=== PATIENT | female | born 1945 | race Caucasian/White ===

== ENCOUNTER 2022-09-14 16:13 | Observation (INO) ==
[2022-09-14 17:02] LABS: Basophils # (auto) 0.09 K/uL (0-0.2); Eosinophils # (auto) 0.13 K/uL (0-0.50); Eosinophils % (auto) 1.4 %; Hematocrit (blood only) 39.5 % (37.0-47.0); Hemoglobin 13.3 g/dl (12.0-16.0); Immature Granulocytes # (auto) 0.03 K/uL (0.01-0.20); Immature Granulocytes % (auto) 0.3 %; Lymphocytes # (auto) 2.98 K/uL (1.2-3.4); Lymphocytes % (auto) 32.3 %; Mean Corpuscular Hemoglobin 31.5 pg (25.0-34.0); Mean Corpuscular Hgb Conc 33.7 g/dL (32.0-36.0); Mean Corpuscular Volume 93.6 fL (80.0-100.0); Mean Platelet Volume 10.1 fL (9.4-12.4); Monocytes # (auto) 0.63 K/uL (0.11-0.59); Monocytes % (auto) 6.8 %; Neutrophils # (auto) 5.38 K/uL (1.40-6.50); Neutrophils % (auto) 58.2 %; Platelet Count 350 K/uL (130-400); RDW Coefficient of Variation 12.9 % (11.5-14.5); RDW Standard Deviation 43.9 fL (36.4-46.3); Red Blood Count 4.22 M/uL (4.20-5.40); White Blood Count 9.24 K/ul (4.8-10.8)
[2022-09-14 17:20] LABS: Albumin Globulin Ratio 1.6 (0.9-2); Albumin Level 4.6 gm/dl (3.4-5.0); BUN Creatinine Ratio 19.2 (10-20); Bilirubin,Total 0.8 mg/dl (0.2-1.0); Calcium 9.6 mg/dl (8.5-10.1); Creatinine Clr Calc Pharmacy 65.6 ml/min; Est GFR (African American) 91.4 ml/min; Est GFR (Non-African American) 78.9 ml/min; Globulin 2.9 gm/dl (2.5-4.0); Potassium 4.1 mmol/L (3.5-5.1); Total Protein 7.5 gm/dl (6.0-8.3)
[2022-09-14 17:25] LABS: Troponin I High Sensitivity 4.4 pg/ml (0-14)
[2022-09-14 17:33] LABS: Partial Thromboplastin Time 26.6 Seconds (21.0-31.0); Prothrombin Time 10.6 Seconds (9.0-12.0)
--- NOTE | 2022-09-14 17:49 | XRay Report ---
SINGLE VIEW CHEST CLINICAL HISTORY: Atypical chest pain FINDINGS: An AP, portable, upright chest radiograph is obtained. No prior studies are available for c omparison at the time of dictation. The heart is enlarged noting atherosclerotic calcification of the thoracic aorta. The pulmonary vasculature is noncongested. Nonspecific interstitial thickening is li mari chronic. There is bibasilar scarring/atelectasis. The lungs and pleural spaces are otherwise sujey ar. No pneumothorax is seen. The skeletal structures are osteopenic. The bony thorax is grossly intac t. IMPRESSION: Cardiomegaly with no acute cardiopulmonary abnormality. ACT 112: Negative or not required by law. Electronically signed by: Juan Luis Arnett M.D. 09/14/2022 5:48 PM
[2022-09-14] MEDS ORDERED: NITROGLYCERIN SL 0.4 MG/TAB TAB SL STA (18:08)
[2022-09-14] MEDS ORDERED: ASPIRIN CHEW 324 MG PO STA (18:08)
--- NOTE | 2022-09-14 18:59 | History & Physical Report ---
Date of Service September 14, 2022 Assessment & Plan (1) Chest pain: Plan: New symptom of chest pain over the last week described above, improved wtih nitroglycerin, which also improved her blood pressure. Uncontrolled new onset HTN may be a contributing factor. 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 HS trop is negative x 2. EKG with LBBB. No active chest pain after nitroglycerin. Possible unstable angina. Former but not active smoker and will obtain lipid panel fasting. Will start low dose losartan, obtain echo in am and consult cardiology. Cont to monitor on telemetry overnight. Nitro PRN pain. (2) HTN (hypertension): Plan: New onset. Patient with multiple BP readings from home in the Stage II HTN range. Losartan as above. Low salt diet. (3) New onset left bundle branch block (LBBB): Plan: Repeat EKG in am. Echo, cardiology consultation. (4) S/P radiation therapy: Plan: for breast cancer treatment in 2014 (5) Post-surgical hypothyroidism: Plan: chronic, stable. cont Synthroid per home regimen. DVT proph-Lovenox Full Code Dispo- to home in 1-2 days. Tosha Clark DO [facility] Hospitalist History of Present Illness Chief Complaint: chest pain, HTN Primary Care Provider: Mariana Craven DO 77 yo F with no know history of CAD, s/p XRT therapy to her chest for treatment of breast cancer in 2014 presents with elevated blood pressure and chest pain. Chest pain was reported a few days ago, also. She reports having BP checked in a dental visit one week ago and it was 180 systolic. She went home and bought a BP cuff and took several readings. Historically she has had normal BP but in the last week she has noted a trend of 150-180 systolic consistently. During this time she reports intermittent chest discomfort which feels like a vice sound designer/someone holding and squeezing her heart, mostly underneath her left breath. She was burping to feel relief. Reports pain is better with lying flat, possibly worse with sitting up. She has feel increased malaise, generally. She reports "my breathing is not as good as it used to be." Gained 20 pounds over the last few years. Allergies Allergy/AdvReac Type Severity Reaction Status Date / Time No Known Allergies Allergy NONE Verified 09/14/22 18:54 Home Medications Medication Instructions Recorded Confirmed Type Lactobacillus acidophilus 10 10 cell PO DAILY 09/14/22 09/14/22 History billion cell capsule (Probiotic) acetylcysteine 600 mg capsule (NAC) 600 mg PO DAILY 09/14/22 09/14/22 History ascorbic acid (vitamin C) 1,000 mg 1,000 mg PO DAILY 09/14/22 09/14/22 History tablet (Vitamin C) cholecalciferol (vitamin D3) 25 25 mcg PO DAILY 09/14/22 09/14/22 History mcg (1,000 unit) capsule (Vitamin D3) elderberry fruit 200 mg capsule 200 mg PO DAILY 09/14/22 09/14/22 History levothyroxine 88 mcg tablet 88 mcg PO QAM 09/14/22 09/14/22 History (Synthroid) magnesium oxide 400 mg PO DAILY 09/14/22 09/14/22 History vitamin B complex 1 cap PO DAILY 09/14/22 09/14/22 History Past Med/Surg History Medical History (Updated 09/14/22 @ 20:43 by Tosha Clark, DO) Benign neoplasm of colon Jun 2012-hyperplastic polyp 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) "Abnormal left breast mammogram Status post core biopsy 10/03/2014 Status post vacuum-assisted stereotactic biopsy 10/22/2014 revealing lobular hyperplasia Status post left partial mastectomy and sentinel lymph node biopsy 11/01/2014 Revealing invasive lobular carcinoma Estrogen receptor was positive, progesterone receptor was negative, HER-2/jc negative Stage pT2 a pN0 M0 G1 Status post completion of radiation therapy utilizing hypo-fractionation completed 01/09/2015 received 5000 cGy" On 01/24/15 08:56 Michelle Bautista wrote "Abnormal left breast mammogram Status post vacuum-assisted stereotactic biopsy 10/22/2014 revealing lobular hyperplasia Status post left partial mastectomy and sentinel lymph node biopsy 11/01/2014 Revealing invasive lobular carcinoma Estrogen receptor was positive, progesterone receptor was negative, HER-2/jc negative Stage pT2 a pN0 M0 G1 Status post completion of radiation therapy utilizing hypo-fractionation completed 01/09/2015 received 5000 cGy" On 01/24/15 08:56 Michelle Bautista wrote "Abnormal left breast mammogram Status post vacuum-assisted stereotactic biopsy 10/22/2014 revealing lobular hyperplasia Status post left partial mastectomy and sentinel lymph node biopsy 11/01/2014 Revealing invasive lobular carcinoma Estrogen receptor was positive, progesterone receptor was negative, HER-2/jc negative Stage pT2 a pN0 M0 G1 Status post completion of radiation therapy utilizing hypo-fractionation completed 01/09/2015 received 5000 cGy" On 11/28/14 10:56 Michelle Bautista wrote "Abnormal left breast mammogram Status post vacuum-assisted stereotactic biopsy 10/22/2014 revealing lobular hyperplasia Status post left partial mastectomy and sentinel lymph node biopsy 11/01/2014 Revealing invasive lobular carcinoma Estrogen receptor was positive, progesterone receptor was negative, HER-2/jc negative Stage pT2 a pN0 M0 G1" On 11/28/14 10:50 Michelle Bautista wrote "Abnormal left breast mammogram Status post vacuum-assisted stereotactic biopsy 10/22/2014 revealing lobular hyperplasia Status post left partial mastectomy and sentinel lymph node biopsy 11/01/2014 revealing invasive lobular carcinoma, estrogen receptor was positive, progesterone receptor was negative, HER-2/jc negative Stage pT2 a pN0 M0 G1" Cervical dysplasia Malignant neoplasm of thyroid gland Osteoporosis Post-surgical hypothyroidism Surgical History (Updated 09/14/22 @ 18:58 by Tosha Clark DO) S/P left breast biopsy S/P lumpectomy, left breast S/P radiation therapy S/P right breast biopsy S/P [place] (total abdominal hysterectomy) S/P thyroid surgery Family History (Updated 09/14/22 @ 18:55 by Tosha Clark DO) Other Breast cancer Social History (Updated 09/14/22 @ 18:57 by Tosha Clark DO) Smoking Status: Former smoker Smoking End Date: 06/27/2005-30 pack year history; Hx Alcohol Use: Yes Feels Safe at Home: Yes Review of Systems Review of Systems: All systems were reviewed and negative except as indicated on HPI above. Physical Exam Physical Exam: CONSTITUTIONAL: WNWD, vitals as above, generally well-appearing,NAD, appears younger than stated age. EYES: normal conjunctivae, no scleral icterus ENT: external ear and nose normal, MMM NECK: trachea midline RESPIRATORY: clear to auscultation bilaterally, no crackles, rales or wheezes, normal respiratory effort CARDIOVASCULAR: regular rate and rhythm, S1 and 2 heard without murmurs, gallops or rubs, no JVD, no peripheral edema CHEST: inspection of chest was normal GASTROINTESTINAL: soft, nontender, ND, no guarding MUSCULOSKELETAL: strength 5/5 throughout, head is normocephalic and atraumatic SKIN: warm and dry NEUROLOGIC: CN 2-12 grossly intact, no sensory deficit, normal cognition, normal speech, no tremor PSYCHIATRIC: alert cooperative and oriented to person, place and time. Eut hymic mood, makes good eye contact, language grossly intact, recent and remote memory grossly intact. Results & Data Results & Data Vital Signs (Past 12 Hours) Vital Signs Temp Pulse Pulse Resp BP BP Pulse Ox 09/14/22 18:41 85 16 133/85 92 09/14/22 18:20 82 16 165/64 H 94 09/14/22 17:51 85 09/14/22 17:37 92 09/14/22 17:37 95 H 16 184/103 H 09/14/22 16:17 36.8 C 97 H 18 190/91 H 92 O2 Del Method 09/14/22 18:41 Room Air 09/14/22 18:20 Room Air 09/14/22 17:51 09/14/22 17:37 Room Air 09/14/22 17:37 Room Air 09/14/22 16:17 Room Air Laboratory Results Short CBC 09/14/22 Range/Units 16:29 WBC 9.24 (4.8-10.8) K/ul Hgb 13.3 (12.0-16.0) g/dl Hct 39.5 (37.0-47.0) % Plt Count 350 (130-400) K/uL BMP 09/14/22 16:29 Sodium 140 Potassium 4.1 Chloride 105 Carbon Dioxide 28 BUN 14 Creatinine 0.73 Glucose 93 Calcium 9.6 Liver Function 09/14/22 Range/Units 16:29 Total Bilirubin 0.8 (0.2-1.0) mg/dl AST 17 (13-39) U/L ALT 17 (7-52) U/L Alkaline Phosphatase 103 (34-104) U/L Albumin 4.6 (3.4-5.0) gm/dl Diagnostic Findings Chest X-Ray 09/14/22 16:21 SINGLE VIEW CHEST CLINICAL HISTORY: Atypical chest pain FINDINGS: An AP, portable, upright chest radiograph is obtained. No prior studies are available for comparison at the time of dictation. The heart is enlarged noting atherosclerotic calcification of the thoracic aorta. The pulmonary vasculature is noncongested. Nonspecific interstitial thickening is likely chronic. There is bibasilar scarring/atelectasis. The lungs and pleural spaces are otherwise clear. No pneumothorax is seen. The skeletal structures are osteopenic. The bony thorax is grossly intact. IMPRESSION: Cardiomegaly with no acute cardiopulmonary abnormality. ACT 112: Negative or not required by law. Electronically signed by: Juan Luis Arnett M.D. 09/14/2022 5:48 PM Code Status & VTE Plan VTE Prophylaxis Plan VTE Prophylaxis will be ordered: Yes
[2022-09-14 20:09] LABS: Troponin I High Sensitivity 3.9 pg/ml (0-14)
--- NOTE | 2022-09-14 21:01 | Emergency Department Note ---
History of Present Illness General Chief complaint: Hypertension Stated complaint: HBP, CHEST PAIN, HEADACHE, Time Seen by Provider: 09/14/22 17:30 History of Present Illness Provider complaint: Hypertension headache 69-year-old female presents emergency department for hypertension and headache. Patient reports she was at a dental appointment approximately 1 week ago and incidentally found to have high blood pressure. Patient states she has been recording her blood pressures over the last week and has been elevated. Patient reports she started having chest pain over the last 2 days. She reports no difficulty breathing chest pain is located substernal area. No radiation of the pain. She feels the pain feels like a pressure. No cough no fever no hemoptysis no nausea vomiting diarrhea or hematuria. Home Medications Medication Instructions Recorded Confirmed Type Lactobacillus acidophilus 10 10 cell PO DAILY 09/14/22 09/14/22 History billion cell capsule (Probiotic) acetylcysteine 600 mg capsule (NAC) 600 mg PO DAILY 09/14/22 09/14/22 History ascorbic acid (vitamin C) 1,000 mg 1,000 mg PO DAILY 09/14/22 09/14/22 History tablet (Vitamin C) cholecalciferol (vitamin D3) 25 25 mcg PO DAILY 09/14/22 09/14/22 History mcg (1,000 unit) capsule (Vitamin D3) elderberry fruit 200 mg capsule 200 mg PO DAILY 09/14/22 09/14/22 History levothyroxine 88 mcg tablet 88 mcg PO QAM 09/14/22 09/14/22 History (Synthroid) magnesium oxide 400 mg PO DAILY 09/14/22 09/14/22 History vitamin B complex 1 cap PO DAILY 09/14/22 09/14/22 History Allergies Allergy/AdvReac Type Severity Reaction Status Date / Time No Known Allergies Allergy NONE Verified 09/14/22 18:54 Past Med/Surg History Medical History Benign neoplasm of colon Jun 2012-hyperplastic polyp 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) "Abnormal left breast mammogram Status post core biopsy 10/03/2014 Status post vacuum-assisted stereotactic biopsy 10/22/2014 revealing lobular hyperplasia Status post left partial mastectomy and sentinel lymph node biopsy 11/01/2014 Revealing invasive lobular carcinoma Estrogen receptor was positive, progesterone receptor was negative, HER-2/jc negative Stage pT2 a pN0 M0 G1 Status post completion of radiation therapy utilizing hypo-fractionation completed 01/09/2015 received 5000 cGy" On 01/24/15 08:56 Michelle Bautista wrote "Abnormal left breast mammogram Status post vacuum-assisted stereotactic biopsy 10/22/2014 revealing lobular hyperplasia Status post left partial mastectomy and sentinel lymph node biopsy 11/01/2014 Revealing invasive lobular carcinoma Estrogen receptor was positive, progesterone receptor was negative, HER-2/jc negative Stage pT2 a pN0 M0 G1 Status post completion of radiation therapy utilizing hypo-fractionation completed 01/09/2015 received 5000 cGy" On 01/24/15 08:56 Michelle Bautista wrote "Abnormal left breast mammogram Status post vacuum-assisted stereotactic biopsy 10/22/2014 revealing lobular hyperplasia Status post left partial mastectomy and sentinel lymph node biopsy 11/01/2014 Revealing invasive lobular carcinoma Estrogen receptor was positive, progesterone receptor was negative, HER-2/jc negative Stage pT2 a pN0 M0 G1 Status post completion of radiation therapy utilizing hypo-fractionation completed 01/09/2015 received 5000 cGy" On 11/28/14 10:56 Michelle Bautista wrote "Abnormal left breast mammogram Status post vacuum-assisted stereotactic biopsy 10/22/2014 revealing lobular hyperplasia Status post left partial mastectomy and sentinel lymph node biopsy 11/01/2014 Revealing invasive lobular carcinoma Estrogen receptor was positive, progesterone receptor was negative, HER-2/jc negative Stage pT2 a pN0 M0 G1" On 11/28/14 10:50 Michelle Bautista wrote "Abnormal left breast mammogram Status post vacuum-assisted stereotactic biopsy 10/22/2014 revealing lobular hyperplasia Status post left partial mastectomy and sentinel lymph node biopsy 11/01/2014 revealing invasive lobular carcinoma, estrogen receptor was positive, progesterone receptor was negative, HER-2/jc negative Stage pT2 a pN0 M0 G1" Cervical dysplasia Malignant neoplasm of thyroid gland Osteoporosis Post-surgical hypothyroidism Surgical History S/P left breast biopsy S/P lumpectomy, left breast S/P radiation therapy S/P right breast biopsy S/P [place] (total abdominal hysterectomy) S/P thyroid surgery Family History Other Breast cancer Social History Smoking Status: Former smoker Smoking End Date: 06/27/2005-30 pack year history; Hx Alcohol Use: Yes Feels Safe at Home: Yes Physical Exam Vital Signs Vital Signs - 24 hr 09/14/22 16:17 09/14/22 17:37 09/14/22 17:37 Temperature 36.8 C Temperature Source Temporal Artery Scan Pulse Rate 97 H Pulse Rate [Apical] 95 H Respiratory Rate 18 16 Respiratory Effort / Characteristics Non-Labored Non-Labored Respiratory Depth Normal Normal Respiratory Pattern Regular Blood Pressure 190/91 H Blood Pressure [Right Arm] 184/103 H Blood Pressure Mean 124 Blood Pressure Mean [Right Arm] 130 Blood Pressure Position Sitting Pulse Oximetry 92 92 Oxygen Delivery Method Room Air Room Air Room Air Sepsis Recent Fever Within 48 Hours No Sepsis New/Unexplained Change in Mental Status No Sepsis Action Taken by Nursing No Action Required 09/14/22 17:51 09/14/22 18:20 09/14/22 18:41 Temperature Temperature Source Pulse Rate 85 Pulse Rate [Apical] 82 85 Respiratory Rate 16 16 Respiratory Effort / Characteristics Non-Labored Respiratory Depth Normal Respiratory Pattern Blood Pressure Blood Pressure [Right Arm] 165/64 H 133/85 Blood Pressure Mean Blood Pressure Mean [Right Arm] 97 101 Blood Pressure Position Pulse Oximetry 94 92 Oxygen Delivery Method Room Air Room Air Sepsis Recent Fever Within 48 Hours Sepsis New/Unexplained Change in Mental Status Sepsis Action Taken by Nursing 09/14/22 19:03 09/14/22 19:30 09/14/22 20:00 Temperature Temperature Source Pulse Rate Pulse Rate [Apical] 79 78 78 Respiratory Rate 16 18 18 Respiratory Effort / Characteristics Non-Labored Non-Labored Non-Labored Respiratory Depth Normal Normal Normal Respiratory Pattern Blood Pressure Blood Pressure [Right Arm] 119/80 152/85 H 158/79 H Blood Pressure Mean Blood Pressure Mean [Right Arm] 93 107 105 Blood Pressure Position Pulse Oximetry 92 95 94 Oxygen Delivery Method Room Air Room Air Room Air Sepsis Recent Fever Within 48 Hours Sepsis New/Unexplained Change in Mental Status Sepsis Action Taken by Nursing 09/14/22 20:44 Temperature Temperature Source Pulse Rate Pulse Rate [Apical] 73 Respiratory Rate 18 Respiratory Effort / Characteristics Non-Labored Respiratory Depth Normal Respiratory Pattern Blood Pressure Blood Pressure [Right Arm] 160/87 H Blood Pressure Mean Blood Pressure Mean [Right Arm] 111 Blood Pressure Position Pulse Oximetry 95 Oxygen Delivery Method Room Air Sepsis Recent Fever Within 48 Hours Sepsis New/Unexplained Change in Mental Status Sepsis Action Taken by Nursing Physical Exam GENERAL: oriented to person, place, and time. appears well-developed and well- nourished. Patient sitting in bed comfortably reading a book. HENT: Exam performed. - Head: Normocephalic and atraumatic. EYES: Conjunctivae and EOM are normal. Right eye exhibits no discharge. Left eye exhibits no discharge. No scleral icterus. NECK: Normal range of motion. Neck supple. No JVD present. CV: Normal rate, regular rhythm, normal heart sounds and intact distal pulses. There is no peripheral edema. Palpable radial pulses bue. PULM/CHEST: Effort normal and breath sounds normal. No respiratory distress. No stridor. no wheezes. no rales. ABD: The abdomen is soft. There is no tenderness. NEURO: Motor and sensation grossly intact. SKIN: Skin is warm and dry. He is not diaphoretic. PSYCH: normal mood and affect. Behavior is normal. Judgment and thought content normal. Course Course 1729: The patient was evaluated in room C8. A complete history and physical exam was performed Administered Medications Discontinued Medications Aspirin (Aspirin Chew 324 Mg) 324 mg PO NOW STA Stop: 09/14/22 18:09 Last Admin: 09/14/22 18:21 Dose: 324 mg Documented By: FERNANDO Nitroglycerin (Nitroglycerin Sl 0.4 Mg/Tab Tab) 0.4 mg SL NOW STA Stop: 09/14/22 18:09 Last Admin: 09/14/22 18:21 Dose: 0.4 mg Documented By: FERNANDO Medical Decision Making Medical Records Attestation: I reviewed the patient's medical records. External medical records reviewed in the [facility] as well as in the [employer] EMR system via the renal case manager Jeannette and there are no previous EKGs Laboratory Data Attestation: I reviewed the patient's lab results. 09/14/22 16:29 09/14/22 16:29 Lab Results 09/14/22 09/14/22 09/14/22 Range/Units 16:29 16:29 16:29 WBC 9.24 (4.8-10.8) K/ul RBC 4.22 (4.20-5.40) M/uL Hgb 13.3 (12.0-16.0) g/dl Hct 39.5 (37.0-47.0) % MCV 93.6 (80.0-100.0) fL MCH 31.5 (25.0-34.0) pg MCHC 33.7 (32.0-36.0) g/dL RDW Std Deviation 43.9 (36.4-46.3) fL RDW Coeff of Lola 12.9 (11.5-14.5) % Plt Count 350 (130-400) K/uL MPV 10.1 (9.4-12.4) fL Immature Gran % (Auto) 0.3 % Neut % (Auto) 58.2 % Lymph % (Auto) 32.3 % [place] % (Auto) 6.8 % Eos % (Auto) 1.4 % Baso % (Auto) 1.0 % Neut # (Auto) 5.38 (1.40-6.50) K/uL Lymph # (Auto) 2.98 (1.2-3.4) K/uL [place] # (Auto) 0.63 H (0.11-0.59) K/uL Eos # (Auto) 0.13 (0-0.50) K/uL Baso # (Auto) 0.09 (0-0.2) K/uL Immature Gran # (Auto) 0.03 (0.01-0.20) K/uL PT 10.6 (9.0-12.0) Seconds INR 1.0 (0.9-1.1) APTT 26.6 (21.0-31.0) Seconds PTT Ratio 1.0 Sodium 140 (136-145) mmol/L Potassium 4.1 (3.5-5.1) mmol/L Chloride 105 (98-107) mmol/L Carbon Dioxide 28 (21-32) mmol/L Anion Gap 7 (3-11) BUN 14 (6-23) mg/dl Creatinine 0.73 (0.6-1.2) mg/dl Est Cr Clr Drug Dosing 65.6 ml/min Est GFR ( Amer) 91.4 ml/min Est GFR (Non-Af Amer) 78.9 ml/min BUN/Creatinine Ratio 19.2 (10-20) Glucose 93 (70-99(Fasting)) mg/dl Calcium 9.6 (8.5-10.1) mg/dl Total Bilirubin 0.8 (0.2-1.0) mg/dl AST 17 (13-39) U/L ALT 17 (7-52) U/L Alkaline Phosphatase 103 (34-104) U/L Troponin I High Sens 4.4 (0-14) pg/ml Total Protein 7.5 (6.0-8.3) gm/dl Albumin 4.6 (3.4-5.0) gm/dl Globulin 2.9 (2.5-4.0) gm/dl Albumin/Globulin Ratio 1.6 (0.9-2) SARS-CoV-2, RNA, NAAT (NEGATIVE) 09/14/22 09/14/22 Range/Units 18:44 19:30 WBC (4.8-10.8) K/ul RBC (4.20-5.40) M/uL Hgb (12.0-16.0) g/dl Hct (37.0-47.0) % MCV (80.0-100.0) fL MCH (25.0-34.0) pg MCHC (32.0-36.0) g/dL RDW Std Deviation (36.4-46.3) fL RDW Coeff of Lola (11.5-14.5) % Plt Count (130-400) K/uL MPV (9.4-12.4) fL Immature Gran % (Auto) % Neut % (Auto) % Lymph % (Auto) % [place] % (Auto) % Eos % (Auto) % Baso % (Auto) % Neut # (Auto) (1.40-6.50) K/uL Lymph # (Auto) (1.2-3.4) K/uL [place] # (Auto) (0.11-0.59) K/uL Eos # (Auto) (0-0.50) K/uL Baso # (Auto) (0-0.2) K/uL Immature Gran # (Auto) (0.01-0.20) K/uL PT (9.0-12.0) Seconds INR (0.9-1.1) APTT (21.0-31.0) Seconds PTT Ratio Sodium (136-145) mmol/L Potassium (3.5-5.1) mmol/L Chloride (98-107) mmol/L Carbon Dioxide (21-32) mmol/L Anion Gap (3-11) BUN (6-23) mg/dl Creatinine (0.6-1.2) mg/dl Est Cr Clr Drug Dosing ml/min Est GFR ( Amer) ml/min Est GFR (Non-Af Amer) ml/min BUN/Creatinine Ratio (10-20) Glucose (70-99(Fasting)) mg/dl Calcium (8.5-10.1) mg/dl Total Bilirubin (0.2-1.0) mg/dl AST (13-39) U/L ALT (7-52) U/L Alkaline Phosphatase (34-104) U/L Troponin I High Sens 3.9 (0-14) pg/ml Total Protein (6.0-8.3) gm/dl Albumin (3.4-5.0) gm/dl Globulin (2.5-4.0) gm/dl Albumin/Globulin Ratio (0.9-2) SARS-CoV-2, RNA, NAAT NEGATIVE (NEGATIVE) Imaging Data Attestation: I personally reviewed and interpreted this imaging study as follows: My Impression: Chest x-ray negative. Airway clear. No pneumothorax. No consolidation. No cardiomegaly or cephalization.. No free air under the diaphragm. No fractures of the skeletal structures. Radiologist's Impression: Chest X-Ray 09/14/22 16:21 SINGLE VIEW CHEST CLINICAL HISTORY: Atypical chest pain FINDINGS: An AP, portable, upright chest radiograph is obtained. No prior studies are available for comparison at the time of dictation. The heart is enlarged noting atherosclerotic calcification of the thoracic aorta. The pulmonary vasculature is noncongested. Nonspecific interstitial thickening is likely chronic. There is bibasilar scarring/atelectasis. The lungs and pleural spaces are otherwise clear. No pneumothorax is seen. The skeletal structures are osteopenic. The bony thorax is grossly intact. IMPRESSION: Cardiomegaly with no acute cardiopulmonary abnormality. ACT 112: Negative or not required by law. Electronically signed by: Juan Luis Arnett M.D. 09/14/2022 5:48 PM ECG Data Attestation: I personally reviewed and interpreted this ECG as follows: Indication: + chest pain Rate (beats per minute): 88 Rhythm: + normal sinus ECG Intervals/blocks: + Left bundle branch block Additional Comments: sgarbosa negative MDM Narrative Cardiac monitoring: An order was placed for continuous cardiac monitoring. The monitor shows a rate of 80 with sinus rhythm interpreted by me Vital signs stable. Patient's EKG shows a left bundle branch block. External medical records reviewed in the CMR as well as in the [facility] EMR system via the renal case manager Jeannette and there are no previous EKGs to review. Patient's EKG does show new left bundle branch block. It is unclear if this is new or not. Patient's chest pain improved after some sublingual nitroglycerin. Labs and imaging within normal limits. Given the patient's reported chest pain, improvement with sublingual nitroglycerin, and EKG findings of left bundle branch block which is assumed to be new given no prior EKGs to review, the patient will be admitted to the [facility] hospitalist team for chest pain rule out ACS. Impression & Plan Chest pain, New onset left bundle branch block (LBBB) Discharge Plan Visit Data Chief Complaint: Hypertension Stated Complaint: HBP, CHEST PAIN, HEADACHE, ED Provider: Asa Carrillo Discharge Problem: Chest pain, New onset left bundle branch block (LBBB) Patient Disposition: Admitted As Inpatient Forms Stand Alone Forms: [facility] Prescriptions Prescriptions: No Action levothyroxine [Synthroid] 88 mcg tablet 88 mcg PO QAM cholecalciferol (vitamin D3) [Vitamin D3] 25 mcg (1,000 unit) Capsule 25 mcg PO DAILY magnesium oxide 400 mg magnesium Tablet 400 mg PO DAILY ascorbic acid (vitamin C) [Vitamin C] 1,000 mg Tablet 1,000 mg PO DAILY vitamin B complex [B Complex] Capsule 1 cap PO DAILY Elderberry 200 mg Capsule 200 mg PO DAILY acetylcysteine [NAC] 600 mg Capsule 600 mg PO DAILY Probiotic 10 billion cell Capsule 10 cell PO DAILY Referrals Referrals: Mariana Craven DO [Primary Care Provider] -
[2022-09-14] MEDS: LOSARTAN POTASSIUM 50 MG TAB PO SCH (22:13)
[2022-09-14] MEDS ORDERED: POLYETHYLENE (MIRALAX) 17 GM PACK PO PRN (22:32)
[2022-09-14] MEDS ORDERED: ACETAMINOPHEN 325 MG TAB PO PRN (22:32)
[2022-09-14] MEDS ORDERED: MAGNESIUM HYDROXIDE SUSP 30 ML UDC PO PRN (22:32)
[2022-09-14 23:30] LABS: Chol HDL Ratio 3.3 (0-5)
[2022-09-14] MEDS: ENOXAPARIN INJ 40 MG/0.4 ML SYR SQ SCH (23:40)
[2022-09-15 04:51] LABS: Hematocrit (blood only) 36.3 % (37.0-47.0); Hemoglobin 12.4 g/dl (12.0-16.0); Mean Corpuscular Hemoglobin 31.8 pg (25.0-34.0); Mean Corpuscular Hgb Conc 34.2 g/dL (32.0-36.0); Mean Corpuscular Volume 93.1 fL (80.0-100.0); Platelet Count 272 K/uL (130-400); RDW Coefficient of Variation 12.8 % (11.5-14.5); RDW Standard Deviation 43.7 fL (36.4-46.3); White Blood Count 7.64 K/ul (4.8-10.8)
[2022-09-15 05:03] LABS: BUN Creatinine Ratio 21.8 (10-20); Calcium 9.1 mg/dl (8.5-10.1); Est GFR (African American) 104.1 ml/min; Est GFR (Non-African American) 89.8 ml/min; Potassium 3.5 mmol/L (3.5-5.1)
[2022-09-15] MEDS: LEVOTHYROXINE SODIUM 88 MCG TABLET PO SCH (06:18)
--- NOTE | 2022-09-15 08:45 | Cardiology Consultation ---
Date of Consultation September 15, 2022 Assessment & Plan (1) New onset left bundle branch block (LBBB): (2) Chest pain: (3) HTN (hypertension): (4) S/P radiation therapy: Plan Patient admitted for intermittent chest pain, newly diagnosed uncontrolled hypertension, and new LBBB (without recent EKG for comparison). Patient reports decline in functional capacity, dyspnea, and intermittent chest tightness has been present for several months associated with uncontrolled hypertension HS troponin negative x2. Echo with preserved EF, abnormal septal motion consistent with LBBB. In ER, initially CP resolved with SL nitro. She was started on ASA and losartan for hypertension Options discussed. Recommend proceeding with diagnostic cardiac catheterization for definitive diagnosis and r/o ischemic heart disease given her symptoms and LBBB. Risks/benefits/alternatives also discussed. She is agreeable to proceeding. No dye allergy Normal renal function. Lipids not significantly elevated. Await cath results and consider statin therapy Further titration of losartan vs addition of carvedilol pending BP response to losartan 50 mg. Case discussed with Dr. Buenrostro. Further recommendations pending evaluation and diagnostic cardiac cath. Patient to remain NPO. Supervising Physician Co-Signing Physician Notes The patient was seen and personally examined Pleasant 77-year-old female with several months history of increasing exertional dyspnea and intermittent chest pressure. Ultimately presenting to ER today with hypertension and chest pressure. EKG with left bundle branch block of uncertain duration. Initial troponins negative for myocardial injury. Echocardiogram with dyssynergy contraction pattern to the interventricular septum but no focal wall motion abnormality Assessment and plan as above. Discussed results in detail with patient given ongoing symptoms and concerns, newly observed left bundle branch block. We will proceed with coronary angiography today . Procedure risks discussed all details noted. Additional risks of coronary invention if indicated discussed Further recommendations pending testing History of Present Illness Reason for Consultation: CP; LBBB; HTN Requesting Physician: Dr. Clark Attending Physician: Dr. Buenrostro History of Present Illness Patient is a 77 year old female with history of breast CA s/p radiation to the chest in 2018, hypothyroidism, and no known prior cardiovascular disease. She presented to ER with complaints of chest pain intermittently over the last few months, associated with elevated BP readings. Symptoms began while she was visiting family in [place] [place] in May 2022. She reports she took her BP while there and her BP was elevated in the 150/80's. She noted more generalized fatigue with intermittent SOB, but did not see her PCP upon return. She went to health and physical education professor appt several weeks ago and her BP was 180/90. She began to track her BP at home with readings ranging 150-170's over the last month. She also developed substernal/epigastric "band" around her chest that would come and go. Described as a squeezing sensation that would occur at rest or with exertion. She also reports increased "indigestion" and taking TUMS at home without relief. She walks for exercise and notes these symptoms sometimes with her walking. She notes increased dyspnea with exertional activities as well. Yesterday, she was not feeling well. Her BP was elevated and she noted fluttering sensation with this tightness around her chest/epigastric region, so she came to ER for evaluation. Upon arrival, apparently she was treated with SL nitro with improved chest tightness. BP was elevated and trended down with nitro. EKG demonstrated NSR with LBBB on arrival. The only prior EKG available was in 2009 and was without LBBB. No recent EKG's for comparison in inpatient/outpatient records. HS troponin negative x2. She was started on losartan for BP. Chest xray was clear, but demonstrated aortic calcifications. At time of consult, patient resting in bed. She reports the chest tightness resolved last night and she slept well, but has returned this morning intermittently. BP remains borderline elevated. Tolerating losartan. Started on ASA. LDL not significantly elevated Allergies Allergy/AdvReac Type Severity Reaction Status Date / Time No Known Allergies Allergy NONE Verified 09/14/22 18:54 Home Medications Medication Instructions Recorded Confirmed Type Lactobacillus acidophilus 10 10 cell PO DAILY 09/14/22 09/14/22 History billion cell capsule (Probiotic) acetylcysteine 600 mg capsule (NAC) 600 mg PO DAILY 09/14/22 09/14/22 History ascorbic acid (vitamin C) 1,000 mg 1,000 mg PO DAILY 09/14/22 09/14/22 History tablet (Vitamin C) cholecalciferol (vitamin D3) 25 25 mcg PO DAILY 09/14/22 09/14/22 History mcg (1,000 unit) capsule (Vitamin D3) elderberry fruit 200 mg capsule 200 mg PO DAILY 09/14/22 09/14/22 History levothyroxine 88 mcg tablet 88 mcg PO QAM 09/14/22 09/14/22 History (Synthroid) magnesium oxide 400 mg PO DAILY 09/14/22 09/14/22 History vitamin B complex 1 cap PO DAILY 09/14/22 09/14/22 History Patient History Medical History Benign neoplasm of colon Jun 2012-hyperplastic polyp 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) "Abnormal left breast mammogram Status post core biopsy 10/03/2014 Status post vacuum-assisted stereotactic biopsy 10/22/2014 revealing lobular hyperplasia Status post left partial mastectomy and sentinel lymph node biopsy 11/01/2014 Revealing invasive lobular carcinoma Estrogen receptor was positive, progesterone receptor was negative, HER-2/jc negative Stage pT2 a pN0 M0 G1 Status post completion of radiation therapy utilizing hypo-fractionation completed 01/09/2015 received 5000 cGy" On 01/24/15 08:56 Michelle Bautista wrote "Abnormal left breast mammogram Status post vacuum-assisted stereotactic biopsy 10/22/2014 revealing lobular hyperplasia Status post left partial mastectomy and sentinel lymph node biopsy 11/01/2014 Revealing invasive lobular carcinoma Estrogen receptor was positive, progesterone receptor was negative, HER-2/jc negative Stage pT2 a pN0 M0 G1 Status post completion of radiation therapy utilizing hypo-fractionation completed 01/09/2015 received 5000 cGy" On 01/24/15 08:56 Michelle Bautista wrote "Abnormal left breast mammogram Status post vacuum-assisted stereotactic biopsy 10/22/2014 revealing lobular hyperplasia Status post left partial mastectomy and sentinel lymph node biopsy 11/01/2014 Revealing invasive lobular carcinoma Estrogen receptor was positive, progesterone receptor was negative, HER-2/jc negative Stage pT2 a pN0 M0 G1 Status post completion of radiation therapy utilizing hypo-fractionation completed 01/09/2015 received 5000 cGy" On 11/28/14 10:56 Michelle Bautista wrote "Abnormal left breast mammogram Status post vacuum-assisted stereotactic biopsy 10/22/2014 revealing lobular hyperplasia Status post left partial mastectomy and sentinel lymph node biopsy 11/01/2014 Revealing invasive lobular carcinoma Estrogen receptor was positive, progesterone receptor was negative, HER-2/jc negative Stage pT2 a pN0 M0 G1" On 11/28/14 10:50 Michelle Bautista wrote "Abnormal left breast mammogram Status post vacuum-assisted stereotactic biopsy 10/22/2014 revealing lobular hyperplasia Status post left partial mastectomy and sentinel lymph node biopsy 11/01/2014 revealing invasive lobular carcinoma, estrogen receptor was positive, progesterone receptor was negative, HER-2/jc negative Stage pT2 a pN0 M0 G1" Cervical dysplasia Malignant neoplasm of thyroid gland Osteoporosis Post-surgical hypothyroidism Surgical History S/P left breast biopsy S/P lumpectomy, left breast S/P radiation therapy S/P right breast biopsy S/P [place] (total abdominal hysterectomy) S/P thyroid surgery Family History Other Breast cancer Social History Smoking Status: Former smoker Smoking End Date: 06/27/2005-30 pack year history; Hx Alcohol Use: No Hx Substance Use: No Preferred Language: Thai Communication Ability: Effective Floral Assistant Required: No Beliefs That Will Affect Care: None Current Living Situation: Alone Other Information That Helps Us Care for You: No Feels Safe at Home: Yes Assistive Devices: None Review of Systems Review of Systems: All systems reviewed & are unremarkable except as noted in HPI & below Physical Exam Constitutional: WD/WN, vitals as above well developed and average body habitus; no acute distress Neck: normal visual inspection Respiratory: normal respiratory effort, lungs clear to auscultation Cardiovascular: Rate/Rhythm: regular rate and regular rhythm Heart Sounds: normal S1 and normal S2; no murmur Palpation: normal PMI Vessels: no JVD Extremities: no edema Gastrointestinal (Abdomen): normal bowel sounds, soft, nontender, no hepatosplenomegaly Musculoskeletal: no cyanosis or clubbing, extremities motor strength 5/5 Neurologic: PERRL, EOMI, accommodation nl, no face palsy, no dysarthria Results & Data Vital Signs (Past 12 Hours) Vital Signs Temp Pulse Pulse Resp BP Pulse Ox Pulse Ox 09/15/22 07:06 81 09/15/22 04:02 74 18 142/66 H 92 09/14/22 23:44 93 09/14/22 23:43 36.8 C 75 18 142/92 H 93 09/14/22 22:03 70 18 155/83 H 93 09/14/22 21:01 79 18 141/83 H 95 O2 Del Method O2 Del Method 09/15/22 07:06 09/15/22 04:02 Room Air 09/14/22 23:44 Room Air 09/14/22 23:43 Room Air 09/14/22 22:03 Room Air 09/14/22 21:01 Room Air Laboratory Results Cardiac Enzymes 09/14/22 09/14/22 Range/Units 16:29 19:30 AST 17 (13-39) U/L Troponin I High Sens 4.4 3.9 (0-14) pg/ml Coagulation 09/14/22 Range/Units 16:29 PT 10.6 (9.0-12.0) Seconds APTT 26.6 (21.0-31.0) Seconds Lipids 09/14/22 Range/Units 19:30 Triglycerides 126 (0-150) mg/dl Cholesterol 201 H (0-200) mg/dl HDL Cholesterol 61 mg/dl Cholesterol/HDL Ratio 3.3 (0-5) CBC 09/14/22 09/15/22 Range/Units 16:29 04:20 WBC 9.24 7.64 (4.8-10.8) K/ul RBC 4.22 3.90 L (4.20-5.40) M/uL Hgb 13.3 12.4 (12.0-16.0) g/dl Hct 39.5 36.3 L (37.0-47.0) % Plt Count 350 272 (130-400) K/uL Neut # (Auto) 5.38 (1.40-6.50) K/uL Lymph # (Auto) 2.98 (1.2-3.4) K/uL Rooks # (Auto) 0.63 H (0.11-0.59) K/uL Eos # (Auto) 0.13 (0-0.50) K/uL Baso # (Auto) 0.09 (0-0.2) K/uL Comprehensive Metabolic Panel 09/14/22 09/15/22 Range/Units 16:29 04:20 Sodium 140 141 (136-145) mmol/L Potassium 4.1 3.5 (3.5-5.1) mmol/L Chloride 105 107 (98-107) mmol/L Carbon Dioxide 28 27 (21-32) mmol/L BUN 14 12 (6-23) mg/dl Creatinine 0.73 0.55 L (0.6-1.2) mg/dl Glucose 93 89 (70-99(Fasting)) mg/dl Calcium 9.6 9.1 (8.5-10.1) mg/dl AST 17 (13-39) U/L ALT 17 (7-52) U/L Alkaline Phosphatase 103 (34-104) U/L Total Protein 7.5 (6.0-8.3) gm/dl Albumin 4.6 (3.4-5.0) gm/dl Intake and Output 09/14/22 09/15/22 09/15/22 22:59 06:59 14:59 Other: # Unmeasured Voids 2 Weight 78 kg Diagnostic Findings Repeat EKG this morning: NSR with LBBB No change from EKG on admission. EKG on arrival: Normal sinus rhythm Possible Left atrial enlargement Left axis deviation Left bundle branch block Telemetry reviewed: NSR with conduction delay. Echo report reviewed: Prelim review - preserved EF with abnormal septal wall motion consistent with LBBB Chest X-Ray 09/14/22 16:21 SINGLE VIEW CHEST CLINICAL HISTORY: Atypical chest pain FINDINGS: An AP, portable, upright chest radiograph is obtained. No prior studies are available for comparison at the time of dictation. The heart is enlarged noting atherosclerotic calcification of the thoracic aorta. The pulmonary vasculature is noncongested. Nonspecific interstitial thickening is likely chronic. There is bibasilar scarring/atelectasis. The lungs and pleural spaces are otherwise clear. No pneumothorax is seen. The skeletal structures are osteopenic. The bony thorax is grossly intact. IMPRESSION: Cardiomegaly with no acute cardiopulmonary abnormality. ACT 112: Negative or not required by law. Electronically signed by: Juan Luis Arnett M.D. 09/14/2022 5:48 PM Medications Administered Current Inpatient Medications Acetaminophen (Acetaminophen 325 Mg Tab) 650 mg PO Q4H PRN PRN Reason: Pain or Fever Stop: 10/14/22 22:31 Aspirin (Aspirin 81 Mg Ectab) 81 mg PO QAM BILLY Stop: 10/15/22 08:59 Enoxaparin Sodium (Enoxaparin Inj 40 Mg/0.4 Ml Syr) 40 mg SQ HS BILLY Stop: 10/14/22 22:59 Last Admin: 09/14/22 23:40 Dose: 40 mg Levothyroxine Sodium (Levothyroxine Sodium 88 Mcg Tablet) 88 mcg PO DAILYBB [facility] Stop: 10/15/22 06:29 Last Admin: 09/15/22 06:18 Dose: 88 mcg Losartan Potassium (Losartan Potassium 50 Mg Tab) 50 mg PO HS [facility] Stop: 10/14/22 20:59 Last Admin: 09/14/22 22:13 Dose: 50 mg Magnesium Hydroxide (Magnesium Hydroxide Susp 30 Ml Udc) 30 ml PO Q12H PRN PRN Reason: Constipation Stop: 10/14/22 22:31 Polyethylene Glycol (Polyethylene (Miralax) 17 Gm Pack) 17 gm PO DAILY PRN PRN Reason: Constipation Stop: 10/14/22 22:31
[2022-09-15] MEDS: ASPIRIN 81 MG ECTAB PO SCH (08:56)
--- NOTE | 2022-09-15 12:02 | Electrocardiogram Report ---
Test Reason : Blood Pressure : / mmHG Vent. Rate : 088 BPM Atrial Rate : 088 BPM P-R Int : 168 ms QRS Dur : 138 ms QT Int : 394 ms P-R-T Axes : 066 -44 104 degrees QTc Int : 476 ms Poor data quality, interpretation may be adversely affected Normal sinus rhythm Possible Left atrial enlargement Left axis deviation Left bundle branch block Abnormal ECG When compared with ECG of 24-MAY-2010 17:51, Left bundle branch block is now Present Confirmed by Srinivasa King ([id number]) on 09/15/2022 12:02:35 PM Referred By: Confirmed By:Alfredito King
--- NOTE | 2022-09-15 12:11 | Electrocardiogram Report ---
Test Reason : Blood Pressure : / mmHG Vent. Rate : 073 BPM Atrial Rate : 073 BPM P-R Int : 174 ms QRS Dur : 138 ms QT Int : 436 ms P-R-T Axes : 051 -42 115 degrees QTc Int : 480 ms Normal sinus rhythm Possible Left atrial enlargement Left axis deviation Left bundle branch block Abnormal ECG When compared with ECG of 14-SEP-2022 16:27, (unconfirmed) No significant change was found Confirmed by Srinivasa King ([id number]) on 09/15/2022 12:11:07 PM Referred By: REFERRED SELF Confirmed By:Alfredito King
[2022-09-15] MEDS ORDERED: HEPARIN (PORCINE) 1000 UNIT/ML 10 ML (CATH LAB USE ONLY) ONE (13:35)
[2022-09-15] MEDS ORDERED: MIDAZOLAM HCL 1 MG/ML 2ML VIAL ONE (13:35)
[2022-09-15] MEDS ORDERED: niCARdipine HCL INJ 2.5 MG/ML 10 ML AMP ONE (13:35)
[2022-09-15] MEDS ORDERED: fentaNYL citrate PF 100 MCG/2 ML VIAL ONE (13:35)
[2022-09-15] MEDS ORDERED: NITROGLYCERIN/D5W 100MCG/ML 20ML SYR ONE (13:36)
--- NOTE | 2022-09-15 13:55 | Hospitalist Progress Note ---
Date of Service September 15, 2022 Assessment & Plan (1) Chest pain: Plan: Chest Pain LBBB Likely due to uncontrolled hypertension --CXR:Cardiomegaly with no acute cardiopulmonary abnormality. --ECHO: Left ventricle is normal in size. Mild asymmetric LVH, septal motion is consistent with conduction abnormality. No regional wall motion abnormality. EF 60 to 65%. Grade 1 diastolic dysfunction. No significant valvular disease. --S/P Cardiac Cath:Right dominant coronary anatomy with minimal luminal irregularities and no significant obstruction. Normal left ventricular systolic function EF 60% with normal left end-diastolic pressure -- Continue losartan, metoprolol Appreciate cardiology input Monitor BP (2) HTN (hypertension): Plan: Continue losartan, metoprolol Monitor (3) New onset left bundle branch block (LBBB): Plan: Management as above (4) S/P radiation therapy: Plan: H/O Breast cancer Treated in 2014 (5) Post-surgical hypothyroidism: Plan: chronic, stable Continue levothyroxine DVT Px: Lovenox SQ Code Status Full Code Admission and Anticipated Discharge Date Admission Date: September 14, 2022 Subjective Patient is seen and examined at bedside States having retrosternal chest pain Denies any nausea, vomiting, dyspnea, dizziness Discussed with cardiology today Had cardiac catheterization earlier today Review of Systems Review of Systems: All systems reviewed & are unremarkable except as noted in Subjective Physical Exam Physical Exam: Physical Exam: Vitals signs as noted above General Appearance:Moderately built and nourished, no apparent distress Head: normocephalic, Atraumatic Eyes: normal inspection, EOMI Neck: supple, Trachea midline Respiratory/Chest: Normal breath sounds, CTA, No accessory muscle use Cardiovascular: S1, S2, No murmur Abdomen/GI:Soft, Non tender, Bowel sounds present Extremities/Musculoskeletal:normal inspection, no edema Neurologic/Psych:AAOX3, grossly no focal neurological deficits Skin: normal color, warm Results & Data Results & Data Vital Signs (Past 12 Hours) Vital Signs Pulse Pulse Resp BP Pulse Ox O2 Del Method 09/15/22 09:12 82 18 152/85 H 95 Room Air 09/15/22 09:02 79 16 152/85 H 92 Room Air 09/15/22 07:06 81 09/15/22 04:02 74 18 142/66 H 92 Room Air Laboratory Results Short CBC 09/15/22 Range/Units 04:20 WBC 7.64 (4.8-10.8) K/ul Hgb 12.4 (12.0-16.0) g/dl Hct 36.3 L (37.0-47.0) % Plt Count 272 (130-400) K/uL [facility] 09/15/22 04:20 Sodium 141 Potassium 3.5 Chloride 107 Carbon Dioxide 27 BUN 12 Creatinine 0.55 L Glucose 89 Calcium 9.1
--- NOTE | 2022-09-15 14:04 | Pre Anesthesia Assessment ---
Date of Service September 15, 2022 Pre Sedation Assessment Vital Signs Temp Pulse Pulse Resp BP BP Pulse Ox 09/15/22 09:12 82 18 152/85 H 95 09/15/22 09:02 79 16 152/85 H 92 09/15/22 07:06 81 09/15/22 04:02 74 18 142/66 H 92 09/14/22 23:44 09/14/22 23:43 36.8 C 75 18 142/92 H 93 09/14/22 22:03 70 18 155/83 H 93 09/14/22 21:01 79 18 141/83 H 95 09/14/22 20:44 73 18 160/87 H 95 09/14/22 20:00 78 18 158/79 H 94 09/14/22 19:30 78 18 152/85 H 95 09/14/22 19:03 79 16 119/80 92 09/14/22 18:41 85 16 133/85 92 09/14/22 18:20 82 16 165/64 H 94 09/14/22 17:51 85 09/14/22 17:37 92 09/14/22 17:37 95 H 16 184/103 H 09/14/22 16:17 36.8 C 97 H 18 190/91 H 92 Pulse Ox O2 Del Method O2 Del Method 09/15/22 09:12 Room Air 09/15/22 09:02 Room Air 09/15/22 07:06 09/15/22 04:02 Room Air 09/14/22 23:44 93 Room Air 09/14/22 23:43 Room Air 09/14/22 22:03 Room Air 09/14/22 21:01 Room Air 09/14/22 20:44 Room Air 09/14/22 20:00 Room Air 09/14/22 19:30 Room Air 09/14/22 19:03 Room Air 09/14/22 18:41 Room Air 09/14/22 18:20 Room Air 09/14/22 17:51 09/14/22 17:37 Room Air 09/14/22 17:37 Room Air 09/14/22 16:17 Room Air Cardiovascular RRR, no murmur, no edema no murmur no JVD no edema Respiratory normal respiratory effort, lungs clear to auscultation Pre-Sedation Airway Assessment Smoking Status: Former smoker Mallampati Class: II ASA: ASA3 NPO Status Date of Last Intake of Fluids: 09/15/22 Time of Last Intake of Fluids: 09:00 Last Oral Intake of Fluids Comment: Sips Date of Last Intake of Solid Food: 09/14/22 Time of Last Intake of Solid Foods: 13:00 Procedure Planning Contraindications for Sedation: none Current Medications Reviewed: Yes Notes The planned sedation has been discussed with the patient. Informed Consent was obtained. I have identified the patient, determined the appropriateness of sedation and have assessed the patient immediately prior to the procedure. All medicine(s) and interventions are by my order.
--- NOTE | 2022-09-15 14:30 | Post Anesthesia Assessment ---
Date of Service September 15, 2022 Post Sedation Assessment Vital Signs Temp Pulse Pulse Resp BP BP Pulse Ox 09/15/22 09:12 82 18 152/85 H 95 09/15/22 09:02 79 16 152/85 H 92 09/15/22 07:06 81 09/15/22 04:02 74 18 142/66 H 92 09/14/22 23:44 09/14/22 23:43 36.8 C 75 18 142/92 H 93 09/14/22 22:03 70 18 155/83 H 93 09/14/22 21:01 79 18 141/83 H 95 09/14/22 20:44 73 18 160/87 H 95 09/14/22 20:00 78 18 158/79 H 94 09/14/22 19:30 78 18 152/85 H 95 09/14/22 19:03 79 16 119/80 92 09/14/22 18:41 85 16 133/85 92 09/14/22 18:20 82 16 165/64 H 94 09/14/22 17:51 85 09/14/22 17:37 92 09/14/22 17:37 95 H 16 184/103 H 09/14/22 16:17 36.8 C 97 H 18 190/91 H 92 Pulse Ox O2 Del Method O2 Del Method 09/15/22 09:12 Room Air 09/15/22 09:02 Room Air 09/15/22 07:06 09/15/22 04:02 Room Air 09/14/22 23:44 93 Room Air 09/14/22 23:43 Room Air 09/14/22 22:03 Room Air 09/14/22 21:01 Room Air 09/14/22 20:44 Room Air 09/14/22 20:00 Room Air 09/14/22 19:30 Room Air 09/14/22 19:03 Room Air 09/14/22 18:41 Room Air 09/14/22 18:20 Room Air 09/14/22 17:51 09/14/22 17:37 Room Air 09/14/22 17:37 Room Air 09/14/22 16:17 Room Air Recovery Score Activity: Moves 4 extremities Respiration: Deep Breath/Cough Circulation: +/-20% PreAnes Value Consciousness: Fully Awake Oxygen Saturation: > 92% On Room Air Discharge Sedation Level of Care: Phase I Post Sedation Plan On clinical assessment, the patient appears to have tolerated the sedation without complications. Patient is recovering as anticipated. Patient will continue to be monitored by nursing and may be discharged when sedation discharge criteria are met per below protocol. Upon Completions of procedure up to 15 minutes continue every 5 minute vital signs and the P.A.R. score; then discharge to a Phase I or Fast Track to Phase II per the following guidelines: * Discharge Patient to appropriate Phase II area if PAR is 8 or greater or return to pre- procedure baseline. The post - procedure orders will be as directed. * If PAR score is less than 8 or not return to pre-procedure baseline then patient will follow Phase I monitoring till PAR is reached for Phase II. The Phase I may be done in procedure room or may call to secure a Phase I area. * If naloxone or flumazenil are used for reversal, hold in Phase I for continued monitoring from when last reversal dose was given for a minimum of 60 minutes or longer pending the nurse and/or physician discretion of patient condition before discharge to Phase II. Please call the Sedation Physician to re-evaluate and complete post-note for discharge to Phase II area. Do NOT discharge from procedure sedation or Phase 1 until post- sedation evaluation note is complete by procedure /sedation MD Sedation Discharge Instructions to be given to the patient at discharge to home.
--- NOTE | 2022-09-15 14:37 | Cardiac Catheterization ---
Cardiac Cath Procedure Brief Procedure Date September 15, 2022 Pre-Procedure Diagnosis Pre-Procedure Diagnosis: Angina (, New left bundle branch block) AUC Score AUC Score: 8 Post-Procedure Diagnosis Post-Procedure Diagnosis: Mild CAD Procedure(s) Performed Procedure(s) Performed: Coronary Angiography, Left Heart Cath and LV Angiography [employer] Custodian George Buenrostro MD Sliver Handler(s) Avis Estimated Blood Loss Estimated Blood Loss: <15cc Medication(s) Medication(s): Fentanyl (12.5 mcg IV), Heparin (5000 units IV), Lidocaine 1% (Local infiltration access site), Nicardipine (250 mcg intra-arterial after arterial sheath insertion) and Versed (1 mg IV) Preliminary Findings Impression: Right dominant coronary anatomy with minimal luminal irregularities and no significant obstruction Normal left ventricular systolic function EF 60% with normal left end-diastolic pressure Recommendations Recommendations: Medical Therapy and/or Counseling Specimens Specimens: None Fluids (cc crystalloids) Fluids (cc crystalloids): 78 Anesthesia Start time: 210, stop time: 224 Procedural Complication(s) None Disposition PCU
[2022-09-15] MEDS ORDERED: SODIUM CHLORIDE 0.9% 1000ML 1,000 ML IV SCH (14:45)
--- NOTE | 2022-09-15 14:47 | Cardiac Catheterization ---
Cardiac Cath Procedure Full Procedure Date September 15, 2022 Pre-Procedure Diagnosis Pre-Procedure Diagnosis: Angina (, New left bundle branch block) AUC Score AUC Score: 8 Post-Procedure Diagnosis Post-Procedure Diagnosis: Mild CAD Procedure(s) Performed Procedure(s) Performed: Coronary Angiography, Left Heart Cath and LV Angiography Marketing Traffic Coordinator George Buenrostro MD Nightclub Manager(s) Avis Wallace Estimated Blood Loss Estimated Blood Loss: <15cc Medication(s) Medication(s): Fentanyl (12.5 mcg IV), Heparin (5000 units IV), Lidocaine 1% (Local infiltration access site), Nicardipine (250 mcg intra-arterial after arterial sheath insertion) and Versed (1 mg IV) Summary of Findings Impression: Right dominant coronary anatomy with minimal luminal irregularities and no significant obstruction Normal left ventricular systolic function EF 60% with normal left end-diastolic pressure Procedure: Left heart catheterization, coronary, LV angiography via right radial access Catheters: 6 [place] long glide radial sheath, 5 [place], 5 [place] straight pigtail Coronary angiography: Right dominant anatomy Left main: Normal length and caliber free of disease or calcification Left anterior descending: Type II vessel. It gives rise to a very large first diagonal branch which parallels the left anterior descending arising very shortly in the coursing of the left anterior descending. The vessel then gives rise to a small second diagonal branch at the end of its proximal third and a large degree of septal perforators before coursing to the apex. Within the left anterior sending there are mild luminal irregularities. The origin of the first diagonal branch is narrowed by 20%. The second diagonal branch is very thin but is narrowed by 40% at its origin. Left circumflex: Nondominant. It gives rise to a high marginal branch a second modest caliber marginal branch before continuing on the AV groove a single thin posterolateral branch. There is no disease in the left circumflex Right coronary artery: Very large caliber vessel with long area of distribution. Gives rise to a sinoatrial branch in its proximal portion a acute marginal branch, along posterior descending artery and along the AV groove 2 small very large terminal posterior ventricular branch. There are minimal irregularities in the proximal right coronary artery of less than 30% with minimal ectasia. LV angiography: The left ventricle is of normal in size EF is 65% or greater without wall motion abnormality there is no mitral insufficiency. Left ventricular end-diastolic pressure was 4 Hemodynamics Rest Ao:: 178/88/107 Final Ao: 172/77/117 LV: 167/0/4 Recommendations Recommendations: Medical Therapy and/or Counseling Specimens Specimens: None Radiation Exposure (mGy) 227 Contrast (mls) 92 Fluids (cc crystalloids) Fluids (cc crystalloids): 78 Anesthesia Start time: 210, stop time: 224 Procedural Complication(s) None Disposition PCU I attest to the content of the Intraoperative Record and any orders documented therein. Any exceptions are noted below. 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 EKG with new left bundle branch block CAD Presenation: Stable angina Anginal Classification: CCS III Heart Failure: No Cardiogenic Shock within 24 Hours: No Cardiac Arrest within 24 Hours: No Imaging Studies Past 6 Months: Yes Stress Studies Past 6 Months: No Standard Exercise Test: No Stress Echocardiogram: No Stress Testing w/SPECT MPI: No Cardiac CTA: No Coronary Anatomy Dominant: Right Left Main (% Stenosis): Normal LAD (% Stenosis): Mid (Minimal luminal irregularities) D1 (% Stenosis): Ostial (20) D2 (% Stenosis): Ostial (40) Circumflex (% Stenosis): Normal OM1 (% Stenosis): Normal OM2 (% Stenosis): Normal L PL1 (% Stenosis): Normal RCA (% Stenosis): Mid (Mild luminal irregularities with ectasia) R PDA (% Stenosis): Normal R PL1 (% Stenosis): Normal R PL2 (% Stenosis): Normal Left Ventricular Angiography EF (%): Greater than 65% Mitral Regurgitation: None Diagnostic Physicians Name: George Buenrostro MD Status: Urgent Closure Device Percutaneous Entry Location: Radial Closure Device: Radial Band Recommendations: Medical Therapy and/or Counseling
--- NOTE | 2022-09-15 15:06 | Communication Note ---
Date of Service: September 15, 2022 Patient seen postcardiac catheterization. Doing well after procedure, tolerated well. Study demonstrated minimal luminal irregularities and branch vessel coronary narrowing without significant obstruction Normal to hyperdynamic LV systolic function Plan: Etiology appears to be hypertensive mediated we will add metoprolol to tartrate 25 mg twice per day to losartan begun last evening. Maintain telemetry overnight
[2022-09-15] MEDS ORDERED: METOPROLOL TARTRATE 25 MG TAB PO ONE (15:45)
[2022-09-15] MEDS: LOSARTAN POTASSIUM 50 MG TAB PO SCH (20:31)
[2022-09-15] MEDS: ENOXAPARIN INJ 40 MG/0.4 ML SYR SQ SCH (20:31)
[2022-09-15] MEDS: METOPROLOL TARTRATE 25 MG TAB PO SCH (20:31)
[2022-09-16] MEDS: LEVOTHYROXINE SODIUM 88 MCG TABLET PO SCH (05:56)
[2022-09-16 08:02] LABS: Hematocrit (blood only) 37.4 % (37.0-47.0); Hemoglobin 12.7 g/dl (12.0-16.0); Mean Corpuscular Volume 94.2 fL (80.0-100.0); Mean Platelet Volume 10.3 fL (9.4-12.4); Platelet Count 302 K/uL (130-400); RDW Coefficient of Variation 12.8 % (11.5-14.5); Red Blood Count 3.97 M/uL (4.20-5.40); White Blood Count 9.36 K/ul (4.8-10.8)
[2022-09-16 08:23] LABS: Creatinine Clr Calc Pharmacy 79.8 ml/min; Est GFR (African American) 101.2 ml/min; Est GFR (Non-African American) 87.3 ml/min; Magnesium 1.9 mg/dl (1.7-2.4); Potassium 3.6 mmol/L (3.5-5.1)
[2022-09-16] MEDS: ASPIRIN 81 MG ECTAB PO SCH (10:05)
--- NOTE | 2022-09-16 10:23 | Cardiology Progress Note ---
Date of Service September 16, 2022 Assessment & Plan (1) New onset left bundle branch block (LBBB): (2) Chest pain: (3) HTN (hypertension): (4) S/P radiation therapy: Plan Patient admitted for intermittent chest pain, newly diagnosed uncontrolled hypertension, and new LBBB (without recent EKG for comparison). Patient reports decline in functional capacity, dyspnea, and intermittent chest tightness has been present for several months associated with uncontrolled hypertension HS troponin negative x2. Echo with preserved EF, abnormal septal motion consistent with LBBB. She was started on ASA and losartan for hypertension She underwent diagnostic cardiac cath given her symptoms and LBBB. Cath revealed no significant coronary artery disease, only mild luminal irregularities. BP improved overnight with losartan and addition of metoprolol tartrate 25 mg BID. Currently well controlled. Stable cardiac symptoms for discharge on the above medications. will arrange 2-4 week cardio f/u to recheck BP. Case discussed with Dr. Buenrostro Admission and Anticipated Discharge Date Admission Date: September 14, 2022 Supervising Physician Co-Signing Physician Notes Patient seen and examined, chart, medications reviewed. Recovering well from cardiac catheterization, blood pressure much better controlled on combination of losartan and metoprolol Assessment and plan and recommendations as well outlined above. Patient, hospitalist in agreement with plan Subjective Patient resting in bed comfortably. Denies acute complaints. Tolerated cath yesterday. Small hematoma of the right wrist, but no pain. good pulse. Denies chest pain or SOB. BP improved and tolerating meds. Physical Exam Constitutional: WD/WN, vitals as above well developed and average body habitus; no acute distress Neck: normal visual inspection Respiratory: normal respiratory effort, lungs clear to auscultation Cardiovascular: Rate/Rhythm: regular rate and regular rhythm Heart Sounds: normal S1 and normal S2; no murmur Palpation: normal PMI Vessels: no JVD Extremities: no edema Gastrointestinal (Abdomen): normal bowel sounds, soft, nontender, no hepatosplenomegaly Musculoskeletal: no cyanosis or clubbing, extremities motor strength 5/5 Neurologic: PERRL, EOMI, accommodation nl, no face palsy, no dysarthria Results & Data Vital Signs (Past 12 Hours) Vital Signs Temp Pulse Pulse Resp BP BP Pulse Ox 09/16/22 07:42 36.9 C 73 18 137/67 91 09/16/22 07:27 93 H 09/16/22 03:11 36.8 C 73 16 133/70 92 09/15/22 23:00 36.7 C 75 16 131/66 93 09/15/22 23:00 O2 Del Method O2 Del Method 09/16/22 07:42 Room Air 09/16/22 07:27 09/16/22 03:11 Room Air 09/15/22 23:00 Room Air 09/15/22 23:00 Room Air Laboratory Results CBC 09/16/22 Range/Units 06:53 WBC 9.36 (4.8-10.8) K/ul RBC 3.97 L (4.20-5.40) M/uL Hgb 12.7 (12.0-16.0) g/dl Hct 37.4 (37.0-47.0) % Plt Count 302 (130-400) K/uL Comprehensive Metabolic Panel 09/16/22 Range/Units 06:53 Sodium 140 (136-145) mmol/L Potassium 3.6 (3.5-5.1) mmol/L Chloride 108 H (98-107) mmol/L Carbon Dioxide 23 (21-32) mmol/L BUN 18 (6-23) mg/dl Creatinine 0.60 (0.6-1.2) mg/dl Glucose 90 (70-99(Fasting)) mg/dl Calcium 9.0 (8.6-10.3) mg/dl Intake and Output 09/15/22 09/16/22 09/16/22 22:59 06:59 14:59 Intake Total 620 / 740 120 / 740 Balance 620 / 740 120 / 740 Intake: IV 500 / 500 Sodium Chloride 0.9% 1000ML 1, 500 / 500 000 ml @ 100 mls/hr IV .Q10H BILLY Rx#:[id number] Oral 120 / 240 120 / 240 Other: # Unmeasured Voids 1 Diagnostic Findings Telemetry reviewed: NSR 70's, IVCD. No arrhythmias Cath report reviewed: Summary of Findings Impression: Right dominant coronary anatomy with minimal luminal irregularities and no significant obstruction Normal left ventricular systolic function EF 60% with normal left end-diastolic pressure Echo report reviewed: The LV is normal in size. Mild asymmetric LVH Septal motion consistent with conduction abnormality No regional wall motion abnormalities EF 60-65% Grade I diastolic dysfunction No significant valvular disease Medications Administered Current Inpatient Medications Acetaminophen (Acetaminophen 325 Mg Tab) 650 mg PO Q4H PRN PRN Reason: Pain or Fever Stop: 10/14/22 22:31 Aspirin (Aspirin 81 Mg Ectab) 81 mg PO QAM BILLY Stop: 10/15/22 08:59 Last Admin: 09/16/22 10:05 Dose: 81 mg Enoxaparin Sodium (Enoxaparin Inj 40 Mg/0.4 Ml Syr) 40 mg SQ HS BILLY Stop: 10/14/22 22:59 Last Admin: 09/15/22 20:31 Dose: 40 mg Levothyroxine Sodium (Levothyroxine Sodium 88 Mcg Tablet) 88 mcg PO DAILYBB BILLY Stop: 10/15/22 06:29 Last Admin: 09/16/22 05:56 Dose: 88 mcg Losartan Potassium (Losartan Potassium 50 Mg Tab) 50 mg PO HS BILLY Stop: 10/14/22 20:59 Last Admin: 09/15/22 20:31 Dose: 50 mg Magnesium Hydroxide (Magnesium Hydroxide Susp 30 Ml Udc) 30 ml PO Q12H PRN PRN Reason: Constipation Stop: 10/14/22 22:31 Metoprolol Tartrate (Metoprolol Tartrate 25 Mg Tab) 25 mg PO BID BILLY Stop: 10/15/22 20:59 Last Admin: 09/15/22 20:31 Dose: 25 mg Polyethylene Glycol (Polyethylene (Miralax) 17 Gm Pack) 17 gm PO DAILY PRN PRN Reason: Constipation Stop: 10/14/22 22:31
[2022-09-16] MEDS: METOPROLOL TARTRATE 25 MG TAB PO SCH (11:28)
--- NOTE | 2022-09-16 13:16 | Hospitalist Progress Note ---
Date of Service September 16, 2022 Assessment & Plan (1) Chest pain: Plan: Chest Pain LBBB Likely due to uncontrolled hypertension --CXR:Cardiomegaly with no acute cardiopulmonary abnormality. --ECHO: Left ventricle is normal in size. Mild asymmetric LVH, septal motion is consistent with conduction abnormality. No regional wall motion abnormality. EF 60 to 65%. Grade 1 diastolic dysfunction. No significant valvular disease. --S/P Cardiac Cath:Right dominant coronary anatomy with minimal luminal irregularities and no significant obstruction. Normal left ventricular systolic function EF 60% with normal left end-diastolic pressure -- Continue losartan, metoprolol Appreciate cardiology input Advised to follow-up with cardiology upon discharge (2) HTN (hypertension): Plan: Continue losartan, metoprolol Monitor (3) New onset left bundle branch block (LBBB): Plan: Management as above (4) S/P radiation therapy: Plan: H/O Breast cancer Treated in 2014 (5) Post-surgical hypothyroidism: Plan: chronic, stable Continue levothyroxine DVT Px: Lovenox SQ Code Status Full Code Admission and Anticipated Discharge Date Admission Date: September 14, 2022 Subjective Patient is seen and examined at bedside States feeling well today Chest pain resolved No new complaints Eager to get discharged Review of Systems Review of Systems: All systems reviewed & are unremarkable except as noted in Subjective Physical Exam Physical Exam: Physical Exam: Vitals signs as noted above General Appearance:Moderately built and nourished, no apparent distress Head: normocephalic, Atraumatic Eyes: normal inspection, EOMI Neck: supple, Trachea midline Respiratory/Chest: Normal breath sounds, CTA, No accessory muscle use Cardiovascular: S1, S2, No murmur Abdomen/GI:Soft, Non tender, Bowel sounds present Extremities/Musculoskeletal:normal inspection, no edema Neurologic/Psych:AAOX3, grossly no focal neurological deficits Skin: normal color, warm Results & Data Results & Data Vital Signs (Past 12 Hours) Vital Signs Temp Pulse Pulse Resp BP Pulse Ox O2 Del Method 09/16/22 11:26 36.7 C 77 18 125/58 L 93 Room Air 09/16/22 07:42 36.9 C 73 18 137/67 91 Room Air 09/16/22 07:27 93 H 09/16/22 03:11 36.8 C 73 16 133/70 92 Room Air Laboratory Results Short CBC 09/16/22 Range/Units 06:53 WBC 9.36 (4.8-10.8) K/ul Hgb 12.7 (12.0-16.0) g/dl Hct 37.4 (37.0-47.0) % Plt Count 302 (130-400) K/uL [facility] 09/16/22 06:53 Sodium 140 Potassium 3.6 Chloride 108 H Carbon Dioxide 23 BUN 18 Creatinine 0.60 Glucose 90 Calcium 9.0
--- NOTE | 2022-09-16 14:12 | Electrocardiogram Report ---
Test Reason : Blood Pressure : / mmHG Vent. Rate : 078 BPM Atrial Rate : 078 BPM P-R Int : 168 ms QRS Dur : 150 ms QT Int : 438 ms P-R-T Axes : 067 -45 113 degrees QTc Int : 499 ms Normal sinus rhythm Left axis deviation Left bundle branch block Abnormal ECG When compared with ECG of 15-SEP-2022 08:56, No significant change was found Confirmed by Srinivasa King ([id number]) on 09/16/2022 2:12:19 PM Referred By: REFERRED SELF Confirmed By:Alfredito King
--- NOTE | 2022-09-16 17:50 | Discharge Summary ---
Date of Service September 16, 2022 Admission HPI Per Admitting Provider 77 yo F with no know history of CAD, s/p XRT therapy to her chest for treatment of breast cancer in 2014 presents with elevated blood pressure and chest pain. Chest pain was reported a few days ago, also. She reports having BP checked in a dental visit one week ago and it was 180 systolic. She went home and bought a BP cuff and took several readings. Historically she has had normal BP but in the last week she has noted a trend of 150-180 systolic consistently. During this time she reports intermittent chest discomfort which feels like a vice research greenhouse supervisor/someone holding and squeezing her heart, mostly underneath her left breath. She was burping to feel relief. Reports pain is better with lying flat, possibly worse with sitting up. She has feel increased malaise, generally. She reports "my breathing is not as good as it used to be." Gained 20 pounds over the last few years. Admission Exam Per Admitting Provider CONSTITUTIONAL: WNWD, vitals as above, generally well-appearing,NAD, appears younger than stated age. EYES: normal conjunctivae, no scleral icterus ENT: external ear and nose normal, MMM NECK: trachea midline RESPIRATORY: clear to auscultation bilaterally, no crackles, rales or wheezes, normal respiratory effort CARDIOVASCULAR: regular rate and rhythm, S1 and 2 heard without murmurs, gallops or rubs, no JVD, no peripheral edema CHEST: inspection of chest was normal GASTROINTESTINAL: soft, nontender, ND, no guarding MUSCULOSKELETAL: strength 5/5 throughout, head is normocephalic and atraumatic SKIN: warm and dry NEUROLOGIC: CN 2-12 grossly intact, no sensory deficit, normal cognition, normal speech, no tremor PSYCHIATRIC: alert cooperative and oriented to person, place and time. Euthymic mood, makes good eye contact, language grossly intact, recent and remote memory grossly intact. Principal Diagnosis Chest pain Uncontrolled hypertension New onset left bundle branch block Discharge Data Allergies Allergy/AdvReac Type Severity Reaction Status Date / Time No Known Allergies Allergy NONE Verified 09/14/22 18:54 Consultations 09/14/22 18:37 ED Decision to Admit Stat 09/14/22 22:32 Consult Cardiology Routine Procedures Performed Operation Date: 09/15/22 13:00 Actual Procedures p Cineradiography w/Routine Exam - George Beunrostro MD p Cath, Left with Cors and Vent - George Buenrostro MD Ordered Studies 09/15/22 12:05 CL Cath Imgs for PACS use only Routine Laboratory Results WBC 9.36 K/ul (4.8-10.8) 09/16/22 06:53 RBC 3.97 M/uL (4.20-5.40) L 09/16/22 06:53 Hgb 12.7 g/dl (12.0-16.0) 09/16/22 06:53 Hct 37.4 % (37.0-47.0) 09/16/22 06:53 MCV 94.2 fL (80.0-100.0) 09/16/22 06:53 MCH 32.0 pg (25.0-34.0) 09/16/22 06:53 MCHC 34.0 g/dL (32.0-36.0) 09/16/22 06:53 RDW Std Deviation 44.0 fL (36.4-46.3) 09/16/22 06:53 RDW Coeff of Lola 12.8 % (11.5-14.5) 09/16/22 06:53 Plt Count 302 K/uL (130-400) 09/16/22 06:53 MPV 10.3 fL (9.4-12.4) 09/16/22 06:53 Immature Gran % (Auto) 0.3 % 09/14/22 16:29 Neut % (Auto) 58.2 % 09/14/22 16:29 Lymph % (Auto) 32.3 % 09/14/22 16:29 Cascade % (Auto) 6.8 % 09/14/22 16:29 Eos % (Auto) 1.4 % 09/14/22 16:29 Baso % (Auto) 1.0 % 09/14/22 16:29 Neut # (Auto) 5.38 K/uL (1.40-6.50) 09/14/22 16:29 Lymph # (Auto) 2.98 K/uL (1.2-3.4) 09/14/22 16:29 Cascade # (Auto) 0.63 K/uL (0.11-0.59) H 09/14/22 16:29 Eos # (Auto) 0.13 K/uL (0-0.50) 09/14/22 16:29 Baso # (Auto) 0.09 K/uL (0-0.2) 09/14/22 16:29 Immature Gran # (Auto) 0.03 K/uL (0.01-0.20) 09/14/22 16:29 PT 10.6 Seconds (9.0-12.0) 09/14/22 16:29 INR 1.0 (0.9-1.1) 09/14/22 16:29 APTT 26.6 Seconds (21.0-31.0) 09/14/22 16:29 PTT Ratio 1.0 09/14/22 16:29 Sodium 140 mmol/L (136-145) 09/16/22 06:53 Potassium 3.6 mmol/L (3.5-5.1) 09/16/22 06:53 Chloride 108 mmol/L (98-107) H 09/16/22 06:53 Carbon Dioxide 23 mmol/L (21-32) 09/16/22 06:53 Anion Gap 9 (3-11) 09/16/22 06:53 BUN 18 mg/dl (6-23) 09/16/22 06:53 Creatinine 0.60 mg/dl (0.6-1.2) 09/16/22 06:53 Est Cr Clr Drug Dosing 79.8 ml/min 09/16/22 06:53 Est GFR ( Amer) 101.2 ml/min 09/16/22 06:53 Est GFR (Non-Af Amer) 87.3 ml/min 09/16/22 06:53 BUN/Creatinine Ratio 30.0 (10-20) H 09/16/22 06:53 Glucose 90 mg/dl (70-99(Fasting)) 09/16/22 06:53 Calcium 9.0 mg/dl (8.6-10.3) 09/16/22 06:53 Magnesium 1.9 mg/dl (1.7-2.4) 09/16/22 06:53 Total Bilirubin 0.8 mg/dl (0.2-1.0) 09/14/22 16:29 AST 17 U/L (13-39) 09/14/22 16:29 ALT 17 U/L (7-52) 09/14/22 16:29 Alkaline Phosphatase 103 U/L (34-104) 09/14/22 16:29 Troponin I High Sens 3.9 pg/ml (0-14) 09/14/22 19:30 Total Protein 7.5 gm/dl (6.0-8.3) 09/14/22 16:29 Albumin 4.6 gm/dl (3.4-5.0) 09/14/22 16:29 Globulin 2.9 gm/dl (2.5-4.0) 09/14/22 16:29 Albumin/Globulin Ratio 1.6 (0.9-2) 09/14/22 16:29 Triglycerides 126 mg/dl (0-150) 09/14/22 19:30 Cholesterol 201 mg/dl (0-200) H 09/14/22 19:30 LDL Cholesterol, Calc 115 mg/dl 09/14/22 19:30 VLDL Cholesterol, Calc 25 mg/dl (0-30) 09/14/22 19: HDL Cholesterol 61 mg/dl 09/14/22 19: Cholesterol/HDL Ratio 3.3 (0-5) 09/14/22 19:30 SARS-CoV-2, RNA, NAAT NEGATIVE (NEGATIVE) 09/14/22 18:44 Impressions Chest X-Ray 09/14/22 16:21 SINGLE VIEW CHEST CLINICAL HISTORY: Atypical chest pain FINDINGS: An AP, portable, upright chest radiograph is obtained. No prior studies are available for comparison at the time of dictation. The heart is enlarged noting atherosclerotic calcification of the thoracic aorta. The pulmonary vasculature is noncongested. Nonspecific interstitial thickening is likely chronic. There is bibasilar scarring/atelectasis. The lungs and pleural spaces are otherwise clear. No pneumothorax is seen. The skeletal structures are osteopenic. The bony thorax is grossly intact. IMPRESSION: Cardiomegaly with no acute cardiopulmonary abnormality. ACT 112: Negative or not required by law. Electronically signed by: Juan Luis Arnett M.D. 09/14/2022 5:48 PM Hospital Course (1) Chest pain: Chest Pain LBBB Likely due to uncontrolled hypertension --CXR:Cardiomegaly with no acute cardiopulmonary abnormality. --ECHO: Left ventricle is normal in size. Mild asymmetric LVH, septal motion is consistent with conduction abnormality. No regional wall motion abnormality. EF 60 to 65%. Grade 1 diastolic dysfunction. No significant valvular disease. --S/P Cardiac Cath:Right dominant coronary anatomy with minimal luminal irregularities and no significant obstruction. Normal left ventricular systolic function EF 60% with normal left end-diastolic pressure -- Continue losartan, metoprolol Appreciate cardiology input Advised to follow-up with cardiology upon discharge (2) HTN (hypertension): Continue losartan, metoprolol Monitor (3) New onset left bundle branch block (LBBB): Management as above (4) S/P radiation therapy: H/O Breast cancer Treated in 2014 (5) Post-surgical hypothyroidism: chronic, stable Continue levothyroxine DVT Px: Lovenox SQ Code Status Full Code Total Time Total Time Spent Total Time Spent (In Minutes): 49 minutes Discharge Plan Discharge Items Patient Disposition: Home - Self-Care Reason For Visit: NEW CONDUCTION ABNORMALITY, CHEST PAIN Discharge Diagnosis: Chest pain Uncontrolled hypertension New onset left bundle branch block Activity: Per Instructions section Exercise/Sports: Gradually increase as tolerated Non-emergency contact: Primary Care Provider and Licensed Architect Call non-emergency contact if: you have any medication questions, your symptoms worsen, your pain is concerning for you and you have a fever Follow-up/Referrals: Mariana Craven DO [Primary Care Provider] - 09/23/22 11:00 am (Date & Time 09/23/2022 11:00 AM Provider Mariana Craven DO Department [facility] ) Diet: Heart Healthy Addtl Attending Provider Instructions: Follow-up with your primary care physician on 09/23/2022 11:00 AM as scheduled Follow-up with your human capital analyst in 2-4 weeks as advised -- Monitor your blood pressure regularly at home. Discuss with your physician for further adjustment of blood pressure medications as needed. -- Starting losartan 50 mg daily, metoprolol 25 mg 2 times a day. Seek immediate medical attention if your symptoms reoccur or worsen Please take all medications as instructed on discharge list below. Please call if you have any questions or problems. You can reach a [facility] hospitalist on duty at [facility] 24 hours a day by calling [phone] Addtl Rig Builder Helper Provider Instructions: ACTIVITY RECOMMENDATIONS: Excess manipulation of the wrist should be avoided for the next 24-48 hours. * No lifting over 2 pounds (approximately a 1/2 gallon of milk) with the utilized arm for 24 hours. * No strenuous activity such as bowling or tennis for 3 days. * Keep the site of the procedure covered with a bandage for 24 hours. *You may shower the day after the procedure. Do not take a tub bath or submerge the puncture site in water for the next 3 days. *Do not operate any motorized equipment for 3 days. SPECIAL CARE INSTRUCTIONS: The site may be slightly bruised and sore following your procedure. Should any of the following occur, contact the Dr. who performed your procedure. 1. Redness/inflammation, swelling, chills, or fever, or colored drainage at procedure site within 3-7 days after your procedure. 2. Coldness, discoloration, ongoing numbness, severe pain, or swelling. Expect mild tingling of hand and tenderness at the puncture site for up to three days. If this persists beyond three days, or other symptoms develop, notify the Dr. who performed your procedure. BLEEDING: If the procedure site on your wrist begins to bleed, do not panic 1. Place 1 or 2 fingers firmly just slightly above the insertion site to stop the bleeding. You may be able to feel your pulse as you hold pressure. 2. Lift your finger after 5 minutes to see if the bleeding has stopped. 3. Once the bleeding has stopped, gently wipe the wrist area clean with a bandage. * If the bleeding from your wrist does not stop after 10 minutes, or if there is a large amount of bleeding or spurting, call 911 ([address] drive yourself to the hospital). SKIN IRRITATION: * You may experience some redness and/or swelling in the area where radiation was administered. If any skin irritation occurs, please contact your family physician. FOLLOW UP VISIT: Keep any scheduled doctor appointments. Pending Studies at Discharge: No Stand-Alone Forms: [employer], Smoking Cessation Medications and DC Order Prescriptions: New losartan 50 mg Tablet 50 mg PO HS Qty: 30 1RF aspirin 81 mg Tablet,Delayed Release (Dr/Ec) 81 mg PO QAM Qty: 30 1RF metoprolol tartrate 25 mg Tablet 25 mg PO BID Qty: 60 1RF Continued levothyroxine [Synthroid] 88 mcg tablet 88 mcg PO QAM cholecalciferol (vitamin D3) [Vitamin D3] 25 mcg (1,000 unit) Capsule 25 mcg PO DAILY magnesium oxide 400 mg magnesium Tablet 400 mg PO DAILY ascorbic acid (vitamin C) [Vitamin C] 1,000 mg Tablet 1,000 mg PO DAILY vitamin B complex Capsule 1 cap PO DAILY elderberry fruit 200 mg Capsule 200 mg PO DAILY acetylcysteine [NAC] 600 mg Capsule 600 mg PO DAILY Probiotic 10 billion cell Capsule 10 cell PO DAILY Discharge Orders: Discharge Order (Routine); Ordered 09/16/22 Ordered By: Chase Lacey Admission Data Admit Date/Time: 09/14/22 18:48 Attending Provider: Chase Lacey Admit Provider: Tosha Clark Primary Care Provider: Mariana Craven Other Providers: Tosha Clark ; George Buenrostro Other Interventions: Discharge Summary Assessment (RN) Last Done: 09/16/22 13:29
== END 2022-09-16 16:11 | disposition home or self-care (01) | DRG 287 ==
LOC: ED 16:13 → INTOOBSV 18:48 → EDINP 18:48 → SUATTDRO 18:48 → EDINP 09-15 13:27 → 2S 09-15 15:13